=== PATIENT | male | born 1950 | race Caucasian/White ===

== ENCOUNTER → 2016-07-07 | Outpatient (CLI) | payer BC ==
[~2016-07-07] MED LIST: ASPI325T45 PO; ATOR-26 PO; FLNIN PO; METO25TA56 PO; MULT-513 PO
--- NOTE | 2016-07-07 11:33 | DIAGNOSTIC IMAGING REPORT ---
CHEST 2 VIEWS ROUTINE CLINICAL HISTORY: PERSISTENT COUGH dyspnea COMPARISON STUDY: 08/18/2013 FINDINGS: Chronic elevation left hemidiaphragm. Chronic pleural reactive changes left base. Right lung is clear. Prior median sternotomy. IMPRESSION: Chronic and postoperative change. No acute process. Electronically signed by: Selvin Etienne M.D. 07/07/2016 11:32 AM Dictated Date/Time: 07/07/2016 11:31 AM
== END | disposition home or self-care (01) ==
LOC: C.RADBC 11:11
PROVIDERS: ATTEND Family Medicine
DX: R05 Cough (principal)

== ENCOUNTER → 2017-06-04 | Outpatient (CLI) | payer BC | END | disposition home or self-care (01) | LOC: C.LABBC 09:33 | PROVIDERS: ATTEND Internal Medicine Cardiovascular Disease | DX: I25.10 Atherosclerotic heart disease of native coronary artery without angina pectoris (principal); E78.2 Mixed hyperlipidemia; I25.5 Ischemic cardiomyopathy ==